=== PATIENT | female | born 1955 | race Caucasian/White ===

== ENCOUNTER 2021-04-13 16:31 | Observation (INO) | payer MEDICARE, OTHER ==
[2021-04-13 18:33] LABS: #Eosinphils 0.2 thou/uL (0.0-0.7); #Lymphocytes 1.9 thou/uL (1.20-3.40); #Monocytes 0.5 thou/uL (0.11-0.59); %Basophils 0.6 % (0.0-1.0); %Eosinophils 2.9 % (0.0-10.0); %Lymphocytes 24.5 % (21.0-51.0); %Monocytes 6.5 % (0.0-10.0); %Neutrophils 65.4 % (42.0-75.0); Hemoglobin 13.1 g/dL (12.0-16.0); Mean Corpuscular HGB CONC 31.4 g/dL (32.0-36.0); Mean Corpuscular Hemoglobin 29.2 pg (27.0-31.0); Mean Corpuscular Volume 93.1 fL (78.0-98.0); Mean Platelet Volume 9.3 fL (7.4-10.4); Platelet Count 210 thou/uL (130-400); Red Blood Cell (RBC) Count 4.48 mill/uL (4.20-5.40); White Blood Cell (WBC) Count 7.7 thou/uL (4.8-10.8)
[2021-04-13 19:08] LABS: ALT (SGPT) 23 U/L (8-55); AST (SGOT) 22 U/L (5-34); Albumin 3.8 g/dL (3.4-4.8); Alkaline Phosphatase 102 U/L (40-110); Anion Gap 14 mmol/L (10-20); BUN (Urea Nitrogen) 9 mg/dL (9.8-20.1); Bilirubin, Total 0.4 mg/dL (0.2-1.2); Calc. Creatinine Clearance 0 mL/min (70-130); Calcium 9.1 mg/dL (7.8-10.44); Carbon Dioxide 26 mmol/L (23-31); Chloride 107 mmol/L (98-107); Globulin 2.7 g/dL (2.4-3.5); Glucose 152 mg/dL (80-115); Lipase 11 U/L (8-78); Potassium 3.7 mmol/L (3.5-5.1); Protein, Total 6.5 g/dL (5.8-8.1); Sodium 143 mmol/L (136-145)
[2021-04-13] MEDS ORDERED: Pantoprazole 40 MG VIAL ONE (19:59)
[2021-04-13] MEDS ORDERED: Acetaminophen 500 MG TAB ONE (19:59)
[2021-04-13] MEDS ORDERED: Ondansetron PF 4 MG/2 ML Vial ONE (19:59)
[2021-04-13] MEDS ORDERED: Calcium Carbonate 500 MG ChewTAB PO PRN (20:11)
[2021-04-13] MEDS ORDERED: Dextrose 5% in Water 1,000 ML IV PRN (20:11)
[2021-04-13] MEDS ORDERED: Dextrose 50% Abboject 50 ML SYRINGE SLOW IVP PRN (20:11)
[2021-04-13] MEDS ORDERED: Ondansetron PF 4 MG/2 ML Vial IVP PRN (20:11)
[2021-04-13] MEDS ORDERED: HumaLOG 300 UNITS/3 ML VIAL SC PRN ×2 (20:13)
[2021-04-13] MEDS ORDERED: Lactated Ringer's 1,000 ML IV SCH (20:15)
[2021-04-14 00:30] VITALS: BMI 46.1
[2021-04-14] MEDS: Lactated Ringer's 1,000 ML IV SCH ×2 (01:34→15:38)
[2021-04-14] MEDS: Lantus 1000 UNITS/10 ML VIAL SC SCH ×2 (01:34→20:33)
[2021-04-14] MEDS: clonazePAM 1 MG TAB PO SCH ×3 (01:34→20:32)
[2021-04-14] MEDS: Gabapentin 400 MG CAP PO SCH ×4 (01:34→20:32)
[2021-04-14] MEDS: Montelukast Sodium 10 mg Tablet PO SCH ×2 (01:35→20:32)
[2021-04-14 01:59] LABS: SARS-CoV-2 NAA Rapid Test Not Detected (NotDetected)
[2021-04-14 06:23] LABS: Anion Gap 13 mmol/L (10-20); BUN (Urea Nitrogen) 8 mg/dL (9.8-20.1); Calc. Creatinine Clearance 140 mL/min (70-130); Calcium 8.6 mg/dL (7.8-10.44); Carbon Dioxide 27 mmol/L (23-31); Chloride 108 mmol/L (98-107); Glucose 119 mg/dL (80-115); Potassium 3.4 mmol/L (3.5-5.1); Sodium 145 mmol/L (136-145)
[2021-04-14] MEDS ORDERED: Potassium Chloride 20 MEQ TAB PO SCH (07:00)
[2021-04-14] MEDS: Fluticasone Propionate Nasal Spray 16 gm Bottle NASAL SCH (09:00)
[2021-04-14] MEDS: Azelastine 137 MCG/Spray 30 ML NS SCH (09:00)
[2021-04-14] MEDS ORDERED: Enoxaparin Sodium 40 MG/0.4 ML SYRINGE SC SCH (09:00)
[2021-04-14] MEDS: Zinc Sulfate 220 MG CAP PO SCH (09:59)
[2021-04-14] MEDS: Carvedilol 6.25 MG TAB PO SCH ×2 (09:59→17:30)
[2021-04-14] MEDS: Spironolactone 25 MG TAB PO SCH (10:00)
[2021-04-14] MEDS: Potassium Chloride 10 MEQ TAB PO SCH (10:00)
[2021-04-14] MEDS: Folic Acid 1 MG TAB PO SCH (10:00)
[2021-04-14] MEDS: Loratadine 10 MG TAB PO SCH (10:00)
[2021-04-14] MEDS: guaiFENesin ER 600 MG TAB PO SCH ×2 (10:01→20:32)
[2021-04-14] MEDS ORDERED: Pseudoephedrine HCl 30 MG TAB PO PRN (10:12)
[2021-04-14] MEDS ORDERED: buPROPion HCl 100 MG TAB PO SCH (10:15)
[2021-04-14] MEDS: Acetaminophen 325 MG TAB PO PRN ×2 (11:50→23:17)
[2021-04-14] MEDS ORDERED: hydrALAZINE 10 MG TAB PO SCH (13:30)
[2021-04-14] MEDS ORDERED: methylPREDNISolone Acetate 40 mg/ml Vial IM SCH (13:45)
[2021-04-14] MEDS ORDERED: Furosemide 20 MG/2 ML VIAL SLOW IVP SCH (14:00)
[2021-04-14] MEDS: Ondansetron ODT 4 MG TAB PO PRN ×2 (14:44→17:29)
[2021-04-14 15:55] LABS: Bacteria/HPF None Seen HPF (None Seen); Bilirubin Negative (Negative); Blood, Urine Negative (Negative); Clarity Clear (Clear); Glucose, Urine (Dipstick) Normal (Negative); Ketone, Urine 40 mg/dL (Negative); Leukocyte Negative Leu/uL (Negative); Nitrite Negative (Negative); Protein, Urine (Dipstick) 10 mg/dL (Neg-Trace); RBC/HPF 0-3 HPF (0-3); Specific Gravity, Urine 1.024 (1.002-1.036); Urobilinogen Normal mg/dL (Less than 2); WBC/HPF 0-3 HPF (0-3); pH, Urine 5.5 (5.0-9.0)
[2021-04-14 15:57] LABS: Calcium Oxalate Crystals Rare HPF (None Seen)
[2021-04-14] MEDS ORDERED: Promethazine HCl 25 MG in Sodium Chloride 0.9% 50 ML IVPB PRN (18:36)
[2021-04-14] MEDS ORDERED: Multivitamins, Adult 10 ML, Folic Acid 1 MG, Thiamine HCl 100 MG in Dextrose 5 %-0.45 %... IV SCH (20:00)
[2021-04-14] MEDS: buPROPion HCl 100 MG TAB PO SCH (20:32)
[2021-04-14] MEDS ORDERED: hydrALAZINE 25 MG TAB PO SCH (21:00)
[2021-04-15 05:18] LABS: Anion Gap 12 mmol/L (10-20); BUN (Urea Nitrogen) 7 mg/dL (9.8-20.1); Calc. Creatinine Clearance 136 mL/min (70-130); Calcium 9.2 mg/dL (7.8-10.44); Carbon Dioxide 29 mmol/L (23-31); Chloride 106 mmol/L (98-107); Glucose 113 mg/dL (80-115); Potassium 3.5 mmol/L (3.5-5.1); Sodium 143 mmol/L (136-145)
[2021-04-15] MEDS ORDERED: Promethazine 25 MG TAB PO PRN (07:01)
[2021-04-15] MEDS ORDERED: hydrALAZINE 25 MG TAB PO SCH (09:00)
[2021-04-15] MEDS ORDERED: Enoxaparin Sodium 60 MG/0.6 ML SYRINGE SC SCH (09:00)
[2021-04-15] MEDS ORDERED: FLU VACC QS2021-22(65YR UP)/PF 240 MCG/0.7 ML SYRINGE IM ONE (09:00)
[2021-04-15] MEDS: Gabapentin 400 MG CAP PO SCH ×2 (10:19→16:40)
[2021-04-15] MEDS: Zinc Sulfate 220 MG CAP PO SCH (10:19)
[2021-04-15] MEDS: Carvedilol 6.25 MG TAB PO SCH (10:21)
[2021-04-15] MEDS: Loratadine 10 MG TAB PO SCH (10:22)
[2021-04-15] MEDS: Spironolactone 25 MG TAB PO SCH (10:23)
[2021-04-15] MEDS: Folic Acid 1 MG TAB PO SCH (10:25)
[2021-04-15] MEDS: Potassium Chloride 10 MEQ TAB PO SCH (10:32)
[2021-04-15] MEDS: buPROPion HCl 100 MG TAB PO SCH (10:32)
[2021-04-15] MEDS: guaiFENesin ER 600 MG TAB PO SCH (10:34)
[2021-04-15] MEDS: clonazePAM 1 MG TAB PO SCH (10:36)
[2021-04-15] MEDS: Azelastine 137 MCG/Spray 30 ML NS SCH (11:41)
[2021-04-15] MEDS: Fluticasone Propionate Nasal Spray 16 gm Bottle NASAL SCH (11:41)
[2021-04-15 12:06] VITALS: BP 146/71; TEMP 98.3
== END 2021-04-15 17:00 | disposition home or self-care (01) ==
LOC: ERS 16:31 → 2SW 19:41
PROVIDERS: ADMIT Family Medicine; ATTEND Family Medicine
DX: E86.0 Dehydration (principal); R19.7 Diarrhea, unspecified; E87.6 Hypokalemia; F32.A Depression, unspecified; H65.93 Unspecified nonsuppurative otitis media, bilateral; J06.9 Acute upper respiratory infection, unspecified; J30.2 Other seasonal allergic rhinitis; I10 Essential (primary) hypertension; K21.9 Gastro-esophageal reflux disease without esophagitis; E11.42 Type 2 diabetes mellitus with diabetic polyneuropathy; F41.1 Generalized anxiety disorder; E66.01 Morbid (severe) obesity due to excess calories; Z68.42 Body mass index [BMI] 45.0-49.9, adult; Z20.822 Contact with and (suspected) exposure to COVID-19; Z88.6 Allergy status to analgesic agent; Z88.0 Allergy status to penicillin; Z88.5 Allergy status to narcotic agent; Z79.51 Long term (current) use of inhaled steroids; Z79.899 Other long term (current) drug therapy; Z98.84 Bariatric surgery status
CPT/HCPCS: 71045; 80048 ×2; 80053; 81001; 82962 ×2; 83690; 84425; 84484; 85025; 87324; 87449; 93005; 96372 ×2; 96374; 96375 ×2; 99285; G0378 ×3; U0002; 36415; 36416; C9113; J1650; J1815; J1940; J2405; J2550; J3411; J7042; J7120; Q0162; Q0169

== ENCOUNTER 2021-04-30 17:02 | Emergency (ER) | payer MEDICARE, OTHER ==
[2021-04-30] MEDS ORDERED: Metoclopramide HCl 10 MG/2 ML VIAL ONE (19:11)
[2021-04-30] MEDS ORDERED: Metoclopramide HCl 10 MG/2 ML VIAL IVP SCH (19:30)
[2021-04-30] MEDS ORDERED: Sodium Chloride 0.9% 1,000 ML IV SCH (19:30)
[2021-04-30 20:11] LABS: Phosphorus 3.5 mg/dL (2.3-4.7)
[2021-04-30 20:14] LABS: ALT (SGPT) 21 U/L (8-55); AST (SGOT) 23 U/L (5-34); Albumin 3.9 g/dL (3.4-4.8); Alkaline Phosphatase 102 U/L (40-110); Anion Gap 13 mmol/L (10-20); BUN (Urea Nitrogen) 10 mg/dL (9.8-20.1); Bilirubin, Total 0.4 mg/dL (0.2-1.2); Calc. Creatinine Clearance 0 mL/min (70-130); Calcium 8.8 mg/dL (7.8-10.44); Carbon Dioxide 25 mmol/L (23-31); Chloride 105 mmol/L (98-107); Globulin 3.1 g/dL (2.4-3.5); Glucose 108 mg/dL (80-115); Magnesium 1.9 mg/dL (1.6-2.6); Potassium 3.9 mmol/L (3.5-5.1); Sodium 139 mmol/L (136-145)
[2021-04-30 20:19] LABS: #Eosinphils 0.1 thou/uL (0.0-0.7); #Lymphocytes 1.7 thou/uL (1.20-3.40); #Monocytes 0.8 thou/uL (0.11-0.59); #Neutrophils 7.1 thou/uL (1.40-6.50); %Basophils 0.4 % (0.0-1.0); %Eosinophils 0.7 % (0.0-10.0); %Lymphocytes 17.5 % (21.0-51.0); %Neutrophils 73.3 % (42.0-75.0); Hemoglobin 13.6 g/dL (12.0-16.0); Mean Corpuscular HGB CONC 32.7 g/dL (32.0-36.0); Mean Corpuscular Hemoglobin 30.4 pg (27.0-31.0); Mean Corpuscular Volume 92.9 fL (78.0-98.0); Mean Platelet Volume 8.8 fL (7.4-10.4); Platelet Count 208 thou/uL (130-400); RBC Distribution Width 15.4 % (11.5-14.5); Red Blood Cell (RBC) Count 4.49 mill/uL (4.20-5.40); White Blood Cell (WBC) Count 9.6 thou/uL (4.8-10.8)
== END 2021-04-30 22:05 | disposition home or self-care (01) ==
LOC: ERS 17:02
DX: R11.2 Nausea with vomiting, unspecified (principal); R19.7 Diarrhea, unspecified; I10 Essential (primary) hypertension; K21.9 Gastro-esophageal reflux disease without esophagitis; M19.90 Unspecified osteoarthritis, unspecified site; Z79.899 Other long term (current) drug therapy
CPT/HCPCS: 36415; 80053; 83735; 84100; 85025; 96365; 96372; 96375; J0500; J2765; J3411

== ENCOUNTER 2022-01-01 13:50 | Outpatient (CLI) | payer OTHER | END 2022-01-01 13:51 | disposition home or self-care (01) | LOC: DTY/OP 13:50 | PROVIDERS: ATTEND Nurse Practitioner Family | DX: E66.01 Morbid (severe) obesity due to excess calories (principal) | CPT/HCPCS: 97802 ==

== ENCOUNTER 2022-02-22 15:21 | Outpatient (CLI) | payer MEDICARE, MEDICAID ==
[2022-02-22 16:50] LABS: #Eosinphils 0.1 10x3/uL (0.0-0.5); #Monocytes 0.4 10x3/uL (0.0-1.1); #Neutrophils 3.1 10x3/uL (1.5-8.4); %Basophils 0.5 % (0.0-2.0); %Eosinophils 2.4 % (0.0-6.0); %Lymphocytes 35.6 % (18.0-47.0); %Monocytes 7.5 % (0.0-10.0); %Neutrophils 53.7 % (40.0-75.0); Hemoglobin 12.3 g/dL (12.0-15.5); Mean Corpuscular HGB CONC 32.4 g/dL (32.0-36.0); Mean Corpuscular Hemoglobin 31.2 pg (27.0-33.0); Mean Corpuscular Volume 96.4 fl (81.6-98.3); Mean Platelet Volume 11.7 fl (7.4-10.4); Platelet Count 183 10x3/uL (150-450); RBC Distribution Width 14.2 % (11.5-14.5); Red Blood Cell (RBC) Count 3.94 10x6/uL (3.90-5.03); White Blood Cell (WBC) Count 5.8 10x3/uL (3.5-10.5)
[2022-02-22 17:09] LABS: Prothrombin Time 11.2 sec (9.5-12.1)
[2022-02-22 17:29] LABS: Anion Gap 13 mmol/L (10-20); BUN (Urea Nitrogen) 11 mg/dL (9.8-20.1); Calc. Creatinine Clearance 0 mL/min (70-130); Calcium 8.5 mg/dL (7.8-10.44); Carbon Dioxide 26 mmol/L (23-31); Chloride 107 mmol/L (98-107); Estimated GFR 95; Glucose 105 mg/dL (80-115); Potassium 3.7 mmol/L (3.5-5.1); Sodium 142 mmol/L (136-145)
== END 2022-02-22 15:22 | disposition home or self-care (01) ==
LOC: LABBT 15:21
PROVIDERS: ATTEND Orthopaedic Surgery
DX: Z01.812 Encounter for preprocedural laboratory examination (principal); M17.12 Unilateral primary osteoarthritis, left knee; Z20.822 Contact with and (suspected) exposure to COVID-19
CPT/HCPCS: 80048; 85025; 85610; 87081; 87811

== ENCOUNTER 2022-02-25 07:05 | Inpatient (IN) | payer OTHER, MEDICAID ==
[2022-02-23 11:32] VITALS: BMI 34.9
[2022-02-25] MEDS ORDERED: Bupivacaine PF 0.5% 30 ML VIAL ONE (07:20)
[2022-02-25] MEDS ORDERED: Sodium Chloride 0.9% 0 ML ONE (07:29)
[2022-02-25] MEDS ORDERED: Vancomycin (BATCH) 1.5 GRAM/300 ML BAG ONE (07:29)
[2022-02-25] MEDS ORDERED: Tranexamic Acid 1,000 MG/10 ML VIAL ONE (07:29)
[2022-02-25] MEDS ORDERED: Sodium Chloride 0.9% 100 ML ONE (07:32)
[2022-02-25] MEDS ORDERED: CEFAZOLIN 2 GM VIAL ONE (07:32)
[2022-02-25] MEDS ORDERED: Levofloxacin 500 mg/D5W 100 ml Premix Bag ONE (07:46)
[2022-02-25] MEDS ORDERED: Promethazine HCl 25 MG/ML VIAL IVPB PRN (07:46)
[2022-02-25] MEDS ORDERED: Promethazine HCl 25 MG/ML VIAL IM PRN ×3 (07:46→11:18)
[2022-02-25] MEDS ORDERED: Ondansetron HCl/PF 4 MG/2 ML Vial IVP PRN (07:46)
[2022-02-25] MEDS ORDERED: Ondansetron PF 4 MG/2 ML Vial ONE ×2 (07:56→09:17)
[2022-02-25] MEDS ORDERED: Midazolam HCl 2 mg/2 ml Vial ONE (07:59)
[2022-02-25] MEDS ORDERED: Fentanyl 100 MCG/2 ML VIAL ONE ×4 (07:59→11:43)
[2022-02-25] MEDS ORDERED: Fentanyl 100 MCG/2 ML VIAL IV PRN (08:12)
[2022-02-25] MEDS ORDERED: traMADol HCl 50 MG TAB PO PRN ×4 (08:15→11:18)
[2022-02-25] MEDS ORDERED: Zolpidem Tartrate 5 MG TAB PO PRN ×2 (08:15→11:18)
[2022-02-25] MEDS ORDERED: Ropivacaine 0.2% 550 ML 550 ML NERVE BLCK SCH (08:15)
[2022-02-25] MEDS ORDERED: Ondansetron PF 4 MG/2 ML Vial IVP PRN ×2 (08:15→11:18)
[2022-02-25] MEDS ORDERED: fentaNYL Citrate/PF 100 MCG/2 ML SYRINGE ONE (08:49)
[2022-02-25] MEDS ORDERED: Scopolamine 1.5 mg/72 hour Patch ONE (09:07)
[2022-02-25] MEDS ORDERED: Dexamethasone 20 MG/5 ML VIAL ONE (09:17)
[2022-02-25] MEDS ORDERED: Lidocaine 1% MPF 2 ML VIAL ONE (09:17)
[2022-02-25] MEDS ORDERED: Glycopyrrolate 0.2 MG/ML 5 ML SYRINGE ONE (09:17)
[2022-02-25] MEDS ORDERED: Labetalol HCl 100 MG/20 ML VIAL ONE ×2 (09:17→11:36)
[2022-02-25] MEDS ORDERED: Bupivacaine HCl 0.5%/Epinephrine 1:200,000/PF 30 ml Vial ONE (09:17)
[2022-02-25] MEDS ORDERED: ePHEDrine 50 MG/ML VIAL ONE (09:17)
[2022-02-25] MEDS ORDERED: PROPOFOL 200 MG/20 ML VIAL ONE (09:17)
[2022-02-25] MEDS ORDERED: Promethazine HCl 25 MG/ML VIAL ONE (11:00)
[2022-02-25] MEDS ORDERED: diphenhydrAMINE 25 MG CAP PO PRN (11:18)
[2022-02-25] MEDS ORDERED: HYDROcodone/Acetaminophen 10/325 mg Tablet PO PRN ×2 (11:18)
[2022-02-25] MEDS ORDERED: Acetaminophen 325 MG TAB PO PRN (11:18)
[2022-02-25] MEDS ORDERED: Morphine 2 MG/ML VIAL SLOW IVP PRN (11:18)
[2022-02-25] MEDS ORDERED: guaiFENesin ER 600 MG TAB PO PRN (11:24)
[2022-02-25] MEDS ORDERED: SECUKINUMAB 150 MG/ML SC SCH (11:30)
[2022-02-25] MEDS ORDERED: hydrALAZINE 20 MG/ML VIAL ONE (11:32)
[2022-02-25] MEDS ORDERED: Ketorolac Tromethamine 30 MG/ML VIAL ONE (11:50)
[2022-02-25] MEDS ORDERED: Mometasone 100 MCG/Formoterol 5 MCG 120 PUFF INHALER INH PRN (12:48)
[2022-02-25] MEDS ORDERED: Ketorolac Tromethamine 30 MG/ML VIAL IM SCH (14:00)
[2022-02-25] MEDS ORDERED: Vancomycin 1 GM in Premix Bag 1 BAG IVPB SCH ×2 (14:00→20:30)
[2022-02-25] MEDS: Sodium Chloride 0.9% 1,000 ML IV SCH (15:01)
[2022-02-25] MEDS: Gabapentin 400 MG CAP PO SCH ×2 (15:01→20:26)
[2022-02-25] MEDS: HYDROcodone/Acetaminophen 10/325 mg Tablet PO PRN ×2 (16:34→23:18)
[2022-02-25] MEDS: Ketorolac Tromethamine 30 MG/ML VIAL IVP SCH ×2 (18:00→20:28)
[2022-02-25] MEDS: buPROPion HCl 100 MG TAB PO SCH (20:26)
[2022-02-25] MEDS: Senokot S 8.6-50 MG TAB PO SCH (20:27)
[2022-02-25] MEDS: Ferrous Gluconate 324 MG TAB PO SCH (20:27)
[2022-02-25] MEDS: Montelukast Sodium 10 mg Tablet PO SCH (20:28)
[2022-02-25] MEDS: clonazePAM 1 MG TAB PO SCH (20:28)
[2022-02-25] MEDS: Fluticasone Propionate Nasal Spray 16 gm Bottle NASAL SCH (21:39)
[2022-02-25] MEDS: Azelastine 137 MCG/Spray 30 ML NS SCH (21:39)
[2022-02-25] MEDS: Escitalopram Oxalate 20 mg Tablet PO SCH (21:39)
[2022-02-26] MEDS: Sodium Chloride 0.9% 1,000 ML IV SCH ×3 (03:03→16:30)
[2022-02-26 05:41] LABS: Hemoglobin 9.4 g/dL (12.0-16.0); Mean Corpuscular HGB CONC 32.2 g/dL (32.0-36.0); Mean Corpuscular Hemoglobin 32.3 pg (27.0-31.0); Mean Platelet Volume 10.1 fL (7.4-10.4); Platelet Count 126 thou/uL (130-400); RBC Distribution Width 13.2 % (11.5-14.5); Red Blood Cell (RBC) Count 2.92 mill/uL (4.20-5.40); White Blood Cell (WBC) Count 6.4 thou/uL (4.8-10.8)
[2022-02-26] MEDS: Ketorolac Tromethamine 30 MG/ML VIAL IVP SCH ×3 (06:44→17:04)
[2022-02-26] MEDS: HYDROcodone/Acetaminophen 10/325 mg Tablet PO PRN ×3 (06:44→20:37)
[2022-02-26] MEDS ORDERED: Non-Formulary Item 1 EACH (Multivitamin [Multiple Vitamins] 1 EACH Tablet) PO SCH (09:00)
[2022-02-26] MEDS: Fluticasone Propionate Nasal Spray 16 gm Bottle NASAL SCH ×2 (09:04→20:36)
[2022-02-26] MEDS: Azelastine 137 MCG/Spray 30 ML NS SCH ×2 (09:04→20:36)
[2022-02-26] MEDS: buPROPion HCl 100 MG TAB PO SCH ×2 (09:06→20:34)
[2022-02-26] MEDS: Multivitamin W/ Minerals 1 TAB PO SCH (09:07)
[2022-02-26] MEDS: Spironolactone 25 MG TAB PO SCH (09:07)
[2022-02-26] MEDS: Loratadine 10 MG TAB PO SCH (09:07)
[2022-02-26] MEDS: Zinc Sulfate 220 MG CAP PO SCH (09:08)
[2022-02-26] MEDS: Senokot S 8.6-50 MG TAB PO SCH ×2 (09:08→20:34)
[2022-02-26] MEDS: Folic Acid 1 MG TAB PO SCH (09:09)
[2022-02-26] MEDS: Lisinopril 20 MG TAB PO SCH (09:09)
[2022-02-26] MEDS: clonazePAM 1 MG TAB PO SCH ×2 (09:09→20:34)
[2022-02-26] MEDS: Gabapentin 400 MG CAP PO SCH ×3 (09:10→20:33)
[2022-02-26] MEDS: Thiamine 100 MG TAB PO SCH (09:11)
[2022-02-26] MEDS: Famotidine 20 MG TAB PO SCH (09:11)
[2022-02-26] MEDS: Ferrous Gluconate 324 MG TAB PO SCH ×2 (09:11→20:35)
[2022-02-26] MEDS: Cyclobenzaprine 10 MG TAB PO PRN (09:32)
[2022-02-26] MEDS: Escitalopram Oxalate 20 mg Tablet PO SCH (20:34)
[2022-02-26] MEDS: Montelukast Sodium 10 mg Tablet PO SCH (20:34)
[2022-02-27] MEDS: Ketorolac Tromethamine 30 MG/ML VIAL IVP SCH ×3 (01:32→16:26)
[2022-02-27] MEDS: Sodium Chloride 0.9% 1,000 ML IV SCH ×3 (03:59→21:56)
[2022-02-27] MEDS: HYDROcodone/Acetaminophen 10/325 mg Tablet PO PRN ×4 (06:24→23:05)
[2022-02-27 06:32] LABS: Hemoglobin 9.9 g/dL (12.0-16.0); Mean Corpuscular HGB CONC 31.4 g/dL (32.0-36.0); Mean Corpuscular Hemoglobin 31.5 pg (27.0-31.0); Mean Platelet Volume 10.2 fL (7.4-10.4); Platelet Count 129 thou/uL (130-400); RBC Distribution Width 13.1 % (11.5-14.5); Red Blood Cell (RBC) Count 3.15 mill/uL (4.20-5.40); White Blood Cell (WBC) Count 6.4 thou/uL (4.8-10.8)
[2022-02-27] MEDS: Spironolactone 25 MG TAB PO SCH (08:52)
[2022-02-27] MEDS: Famotidine 20 MG TAB PO SCH (08:52)
[2022-02-27] MEDS: Ferrous Gluconate 324 MG TAB PO SCH ×2 (08:52→20:40)
[2022-02-27] MEDS: Folic Acid 1 MG TAB PO SCH (08:52)
[2022-02-27] MEDS: Thiamine 100 MG TAB PO SCH (08:52)
[2022-02-27] MEDS: Multivitamin W/ Minerals 1 TAB PO SCH (08:52)
[2022-02-27] MEDS: Senokot S 8.6-50 MG TAB PO SCH ×2 (08:52→20:37)
[2022-02-27] MEDS: clonazePAM 1 MG TAB PO SCH ×2 (08:52→20:38)
[2022-02-27] MEDS: buPROPion HCl 100 MG TAB PO SCH ×2 (08:52→20:40)
[2022-02-27] MEDS: Gabapentin 400 MG CAP PO SCH ×4 (08:53→20:39)
[2022-02-27] MEDS: Loratadine 10 MG TAB PO SCH (08:53)
[2022-02-27] MEDS: Lisinopril 20 MG TAB PO SCH (08:53)
[2022-02-27] MEDS: Apixaban 2.5 MG TAB PO SCH ×2 (08:53→20:38)
[2022-02-27] MEDS: Zinc Sulfate 220 MG CAP PO SCH (08:53)
[2022-02-27] MEDS: Fluticasone Propionate Nasal Spray 16 gm Bottle NASAL SCH ×2 (08:56→20:47)
[2022-02-27] MEDS: Azelastine 137 MCG/Spray 30 ML NS SCH ×2 (08:56→20:47)
[2022-02-27] MEDS: Cyclobenzaprine 10 MG TAB PO PRN (10:10)
[2022-02-27] MEDS: Montelukast Sodium 10 mg Tablet PO SCH (20:40)
[2022-02-27] MEDS: Escitalopram Oxalate 20 mg Tablet PO SCH (20:46)
[2022-02-28] MEDS: HYDROcodone/Acetaminophen 10/325 mg Tablet PO PRN ×4 (03:44→20:42)
[2022-02-28 05:38] LABS: Hemoglobin 9.7 g/dL (12.0-16.0); Mean Corpuscular Hemoglobin 32.4 pg (27.0-31.0); Mean Platelet Volume 9.8 fL (7.4-10.4); Platelet Count 140 thou/uL (130-400); RBC Distribution Width 13.1 % (11.5-14.5); White Blood Cell (WBC) Count 5.3 thou/uL (4.8-10.8)
[2022-02-28] MEDS: Promethazine 25 MG TAB PO PRN (09:38)
[2022-02-28] MEDS: Gabapentin 400 MG CAP PO SCH ×3 (09:39→20:42)
[2022-02-28] MEDS: buPROPion HCl 100 MG TAB PO SCH ×2 (09:39→20:42)
[2022-02-28] MEDS: Spironolactone 25 MG TAB PO SCH (09:39)
[2022-02-28] MEDS: Ferrous Gluconate 324 MG TAB PO SCH ×2 (09:40→20:42)
[2022-02-28] MEDS: Zinc Sulfate 220 MG CAP PO SCH (09:40)
[2022-02-28] MEDS: Senokot S 8.6-50 MG TAB PO SCH ×2 (09:40→20:42)
[2022-02-28] MEDS: Folic Acid 1 MG TAB PO SCH (09:40)
[2022-02-28] MEDS: Multivitamin W/ Minerals 1 TAB PO SCH (09:40)
[2022-02-28] MEDS: Lisinopril 20 MG TAB PO SCH (09:41)
[2022-02-28] MEDS: Thiamine 100 MG TAB PO SCH (09:41)
[2022-02-28] MEDS: Apixaban 2.5 MG TAB PO SCH ×2 (09:42→20:42)
[2022-02-28] MEDS: clonazePAM 1 MG TAB PO SCH ×2 (09:42→20:42)
[2022-02-28] MEDS: Loratadine 10 MG TAB PO SCH (09:43)
[2022-02-28] MEDS: Azelastine 137 MCG/Spray 30 ML NS SCH ×2 (09:50→21:01)
[2022-02-28] MEDS: Fluticasone Propionate Nasal Spray 16 gm Bottle NASAL SCH ×2 (09:50→21:02)
[2022-02-28] MEDS: Famotidine 20 MG TAB PO SCH (09:52)
[2022-02-28] MEDS: Sodium Chloride 0.9% 1,000 ML IV SCH ×2 (09:54→19:24)
[2022-02-28] MEDS ORDERED: fentaNYL 50 mcg/hour Patch TD SCH (12:00)
[2022-02-28] MEDS: Polyethylene Glycol 3350 17 GM Packet PO PRN (13:38)
[2022-02-28] MEDS: Escitalopram Oxalate 20 mg Tablet PO SCH (20:42)
[2022-02-28] MEDS: Montelukast Sodium 10 mg Tablet PO SCH (20:42)
[2022-02-28] MEDS: Cyclobenzaprine 10 MG TAB PO PRN (20:43)
[2022-03-01] MEDS: HYDROcodone/Acetaminophen 10/325 mg Tablet PO PRN ×4 (00:45→21:24)
[2022-03-01] MEDS: Sodium Chloride 0.9% 1,000 ML IV SCH ×2 (04:26→14:46)
[2022-03-01 06:01] LABS: Hemoglobin 9.3 g/dL (12.0-16.0); Mean Platelet Volume 9.9 fL (7.4-10.4); Platelet Count 151 thou/uL (130-400); Red Blood Cell (RBC) Count 2.91 mill/uL (4.20-5.40); White Blood Cell (WBC) Count 5.7 thou/uL (4.8-10.8)
[2022-03-01] MEDS: Loratadine 10 MG TAB PO SCH (08:47)
[2022-03-01] MEDS: Zinc Sulfate 220 MG CAP PO SCH (08:47)
[2022-03-01] MEDS: Folic Acid 1 MG TAB PO SCH (08:47)
[2022-03-01] MEDS: Gabapentin 400 MG CAP PO SCH ×4 (08:47→21:25)
[2022-03-01] MEDS: Multivitamin W/ Minerals 1 TAB PO SCH (08:47)
[2022-03-01] MEDS: buPROPion HCl 100 MG TAB PO SCH ×2 (08:47→21:23)
[2022-03-01] MEDS: clonazePAM 1 MG TAB PO SCH ×2 (08:48→21:24)
[2022-03-01] MEDS: Ferrous Gluconate 324 MG TAB PO SCH ×2 (08:48→21:24)
[2022-03-01] MEDS: Apixaban 2.5 MG TAB PO SCH ×2 (08:48→21:24)
[2022-03-01] MEDS: Spironolactone 25 MG TAB PO SCH (08:48)
[2022-03-01] MEDS: Lisinopril 20 MG TAB PO SCH (08:48)
[2022-03-01] MEDS: Senokot S 8.6-50 MG TAB PO SCH ×2 (08:49→21:24)
[2022-03-01] MEDS: Thiamine 100 MG TAB PO SCH (08:49)
[2022-03-01] MEDS: Famotidine 20 MG TAB PO SCH (08:49)
[2022-03-01] MEDS: Azelastine 137 MCG/Spray 30 ML NS SCH ×2 (08:49→21:26)
[2022-03-01] MEDS: Fluticasone Propionate Nasal Spray 16 gm Bottle NASAL SCH ×2 (08:49→21:26)
[2022-03-01] MEDS: Polyethylene Glycol 3350 17 GM Packet PO PRN (08:52)
[2022-03-01] MEDS: Cyclobenzaprine 10 MG TAB PO PRN ×2 (09:00→21:23)
[2022-03-01] MEDS: Diclofenac 1% 100 GM GEL TP SCH ×4 (12:27→21:35)
[2022-03-01] MEDS ORDERED: Ondansetron ODT 4 MG TAB PO PRN (16:49)
[2022-03-01] MEDS: Escitalopram Oxalate 20 mg Tablet PO SCH (21:24)
[2022-03-01] MEDS: Montelukast Sodium 10 mg Tablet PO SCH (21:25)
[2022-03-02] MEDS: Sodium Chloride 0.9% 1,000 ML IV SCH ×3 (00:25→23:03)
[2022-03-02] MEDS: HYDROcodone/Acetaminophen 10/325 mg Tablet PO PRN ×4 (04:31→17:46)
[2022-03-02] MEDS: Diclofenac 1% 100 GM GEL TP SCH ×4 (09:53→21:40)
[2022-03-02] MEDS: Azelastine 137 MCG/Spray 30 ML NS SCH ×2 (09:57→21:39)
[2022-03-02] MEDS: Fluticasone Propionate Nasal Spray 16 gm Bottle NASAL SCH ×2 (09:58→21:39)
[2022-03-02] MEDS: Promethazine 25 MG TAB PO PRN (10:04)
[2022-03-02] MEDS: clonazePAM 1 MG TAB PO SCH ×2 (10:07→21:41)
[2022-03-02] MEDS: Gabapentin 400 MG CAP PO SCH ×3 (10:07→21:41)
[2022-03-02] MEDS: Ferrous Gluconate 324 MG TAB PO SCH ×2 (10:08→21:41)
[2022-03-02] MEDS: Senokot S 8.6-50 MG TAB PO SCH ×2 (10:08→21:42)
[2022-03-02] MEDS: buPROPion HCl 100 MG TAB PO SCH ×2 (10:08→21:40)
[2022-03-02] MEDS: Loratadine 10 MG TAB PO SCH (10:09)
[2022-03-02] MEDS: Zinc Sulfate 220 MG CAP PO SCH (10:09)
[2022-03-02] MEDS: Multivitamin W/ Minerals 1 TAB PO SCH (10:09)
[2022-03-02] MEDS: Apixaban 2.5 MG TAB PO SCH ×2 (10:09→21:49)
[2022-03-02] MEDS: Famotidine 20 MG TAB PO SCH (10:10)
[2022-03-02] MEDS: Thiamine 100 MG TAB PO SCH (10:10)
[2022-03-02] MEDS: Lisinopril 20 MG TAB PO SCH (10:10)
[2022-03-02] MEDS: Spironolactone 25 MG TAB PO SCH (10:10)
[2022-03-02] MEDS: Folic Acid 1 MG TAB PO SCH (10:10)
[2022-03-02] MEDS: Cyclobenzaprine 10 MG TAB PO PRN ×2 (10:18→21:42)
[2022-03-02] MEDS: Escitalopram Oxalate 20 mg Tablet PO SCH (21:41)
[2022-03-02] MEDS: Montelukast Sodium 10 mg Tablet PO SCH (21:42)
[2022-03-03] MEDS: HYDROcodone/Acetaminophen 10/325 mg Tablet PO PRN ×4 (00:39→21:34)
[2022-03-03] MEDS: Sodium Chloride 0.9% 1,000 ML IV SCH ×2 (06:48→17:51)
[2022-03-03] MEDS: Zinc Sulfate 220 MG CAP PO SCH (10:03)
[2022-03-03] MEDS: Senokot S 8.6-50 MG TAB PO SCH ×2 (10:03→20:58)
[2022-03-03] MEDS: Famotidine 20 MG TAB PO SCH (10:03)
[2022-03-03] MEDS: Multivitamin W/ Minerals 1 TAB PO SCH (10:03)
[2022-03-03] MEDS: Loratadine 10 MG TAB PO SCH (10:04)
[2022-03-03] MEDS: Spironolactone 25 MG TAB PO SCH (10:04)
[2022-03-03] MEDS: Gabapentin 400 MG CAP PO SCH ×3 (10:05→20:58)
[2022-03-03] MEDS: Folic Acid 1 MG TAB PO SCH (10:05)
[2022-03-03] MEDS: Apixaban 2.5 MG TAB PO SCH ×2 (10:05→20:58)
[2022-03-03] MEDS: Ferrous Gluconate 324 MG TAB PO SCH ×2 (10:05→20:58)
[2022-03-03] MEDS: Thiamine 100 MG TAB PO SCH (10:06)
[2022-03-03] MEDS: Diclofenac 1% 100 GM GEL TP SCH ×4 (10:06→20:59)
[2022-03-03] MEDS: buPROPion HCl 100 MG TAB PO SCH ×2 (10:06→20:57)
[2022-03-03] MEDS: Lisinopril 20 MG TAB PO SCH (10:06)
[2022-03-03] MEDS: clonazePAM 1 MG TAB PO SCH ×2 (10:06→20:58)
[2022-03-03] MEDS: Azelastine 137 MCG/Spray 30 ML NS SCH ×2 (10:07→20:59)
[2022-03-03] MEDS: Fluticasone Propionate Nasal Spray 16 gm Bottle NASAL SCH ×2 (10:08→20:59)
[2022-03-03] MEDS: Montelukast Sodium 10 mg Tablet PO SCH (20:57)
[2022-03-03] MEDS: Escitalopram Oxalate 20 mg Tablet PO SCH (20:58)
[2022-03-04] MEDS: Cyclobenzaprine 10 MG TAB PO PRN (00:20)
[2022-03-04] MEDS: HYDROcodone/Acetaminophen 10/325 mg Tablet PO PRN ×3 (05:05→20:53)
[2022-03-04] MEDS: Sodium Chloride 0.9% 1,000 ML IV SCH ×2 (07:30→12:54)
[2022-03-04] MEDS: Thiamine 100 MG TAB PO SCH (08:24)
[2022-03-04] MEDS: Folic Acid 1 MG TAB PO SCH (08:25)
[2022-03-04] MEDS: clonazePAM 1 MG TAB PO SCH ×2 (08:25→20:44)
[2022-03-04] MEDS: Senokot S 8.6-50 MG TAB PO SCH ×2 (08:25→20:51)
[2022-03-04] MEDS: buPROPion HCl 100 MG TAB PO SCH ×2 (08:25→20:44)
[2022-03-04] MEDS: Loratadine 10 MG TAB PO SCH (08:25)
[2022-03-04] MEDS: Zinc Sulfate 220 MG CAP PO SCH (08:26)
[2022-03-04] MEDS: Lisinopril 20 MG TAB PO SCH (08:26)
[2022-03-04] MEDS: Apixaban 2.5 MG TAB PO SCH ×2 (08:27→20:44)
[2022-03-04] MEDS: Multivitamin W/ Minerals 1 TAB PO SCH (08:27)
[2022-03-04] MEDS: Famotidine 20 MG TAB PO SCH (08:27)
[2022-03-04] MEDS: Ferrous Gluconate 324 MG TAB PO SCH ×2 (08:27→20:50)
[2022-03-04] MEDS: Gabapentin 400 MG CAP PO SCH ×3 (08:27→20:51)
[2022-03-04] MEDS: Spironolactone 25 MG TAB PO SCH (08:28)
[2022-03-04] MEDS: Fluticasone Propionate Nasal Spray 16 gm Bottle NASAL SCH ×2 (08:30→20:51)
[2022-03-04] MEDS: Azelastine 137 MCG/Spray 30 ML NS SCH ×2 (08:30→20:44)
[2022-03-04] MEDS: Diclofenac 1% 100 GM GEL TP SCH ×5 (08:31→20:56)
[2022-03-04] MEDS: Escitalopram Oxalate 20 mg Tablet PO SCH (20:49)
[2022-03-04] MEDS: Montelukast Sodium 10 mg Tablet PO SCH (20:51)
[2022-03-05] MEDS: Cyclobenzaprine 10 MG TAB PO PRN ×2 (02:37→10:10)
[2022-03-05] MEDS: Sodium Chloride 0.9% 1,000 ML IV SCH ×3 (02:38→20:18)
[2022-03-05] MEDS: Gabapentin 400 MG CAP PO SCH ×3 (08:17→20:22)
[2022-03-05] MEDS: Folic Acid 1 MG TAB PO SCH (08:19)
[2022-03-05] MEDS: HYDROcodone/Acetaminophen 10/325 mg Tablet PO PRN ×2 (08:20→14:12)
[2022-03-05] MEDS: Multivitamin W/ Minerals 1 TAB PO SCH (08:22)
[2022-03-05] MEDS: Thiamine 100 MG TAB PO SCH (08:22)
[2022-03-05] MEDS: Famotidine 20 MG TAB PO SCH (08:22)
[2022-03-05] MEDS: Spironolactone 25 MG TAB PO SCH (08:23)
[2022-03-05] MEDS: Senokot S 8.6-50 MG TAB PO SCH ×2 (08:23→20:23)
[2022-03-05] MEDS: Loratadine 10 MG TAB PO SCH (08:24)
[2022-03-05] MEDS: Apixaban 2.5 MG TAB PO SCH ×2 (08:24→20:21)
[2022-03-05] MEDS: Zinc Sulfate 220 MG CAP PO SCH (08:24)
[2022-03-05] MEDS: buPROPion HCl 100 MG TAB PO SCH ×2 (08:24→20:21)
[2022-03-05] MEDS: Diclofenac 1% 100 GM GEL TP SCH ×4 (08:25→20:24)
[2022-03-05] MEDS: Ferrous Gluconate 324 MG TAB PO SCH ×2 (08:25→20:23)
[2022-03-05] MEDS: clonazePAM 1 MG TAB PO SCH ×2 (08:25→20:23)
[2022-03-05] MEDS: Lisinopril 20 MG TAB PO SCH (08:25)
[2022-03-05] MEDS: Azelastine 137 MCG/Spray 30 ML NS SCH ×2 (08:26→20:23)
[2022-03-05] MEDS: Fluticasone Propionate Nasal Spray 16 gm Bottle NASAL SCH ×2 (08:26→20:23)
[2022-03-05] MEDS: Montelukast Sodium 10 mg Tablet PO SCH (20:21)
[2022-03-05] MEDS: Escitalopram Oxalate 20 mg Tablet PO SCH (20:21)
[2022-03-06] MEDS: Cyclobenzaprine 10 MG TAB PO PRN ×2 (01:19→17:53)
[2022-03-06] MEDS: HYDROcodone/Acetaminophen 10/325 mg Tablet PO PRN ×3 (01:20→21:09)
[2022-03-06] MEDS: Sodium Chloride 0.9% 1,000 ML IV SCH ×2 (06:56→15:21)
[2022-03-06] MEDS: Gabapentin 400 MG CAP PO SCH ×3 (09:04→21:04)
[2022-03-06] MEDS: buPROPion HCl 100 MG TAB PO SCH ×2 (09:06→21:00)
[2022-03-06] MEDS: Apixaban 2.5 MG TAB PO SCH ×2 (09:06→21:00)
[2022-03-06] MEDS: clonazePAM 1 MG TAB PO SCH ×2 (09:06→21:00)
[2022-03-06] MEDS: Lisinopril 20 MG TAB PO SCH (09:06)
[2022-03-06] MEDS: Loratadine 10 MG TAB PO SCH (09:07)
[2022-03-06] MEDS: Famotidine 20 MG TAB PO SCH (09:08)
[2022-03-06] MEDS: Zinc Sulfate 220 MG CAP PO SCH (09:08)
[2022-03-06] MEDS: Ferrous Gluconate 324 MG TAB PO SCH ×2 (09:08→21:01)
[2022-03-06] MEDS: Folic Acid 1 MG TAB PO SCH (09:08)
[2022-03-06] MEDS: Senokot S 8.6-50 MG TAB PO SCH ×2 (09:08→21:05)
[2022-03-06] MEDS: Thiamine 100 MG TAB PO SCH (09:09)
[2022-03-06] MEDS: Spironolactone 25 MG TAB PO SCH (09:09)
[2022-03-06] MEDS: Multivitamin W/ Minerals 1 TAB PO SCH (09:09)
[2022-03-06] MEDS: Diclofenac 1% 100 GM GEL TP SCH ×4 (09:10→20:55)
[2022-03-06] MEDS: Azelastine 137 MCG/Spray 30 ML NS SCH ×2 (09:11→21:11)
[2022-03-06] MEDS: Fluticasone Propionate Nasal Spray 16 gm Bottle NASAL SCH ×2 (09:11→21:11)
[2022-03-06] MEDS: Polyethylene Glycol 3350 17 GM Packet PO PRN (16:41)
[2022-03-06] MEDS: Promethazine 25 MG TAB PO PRN (17:53)
[2022-03-06] MEDS: Montelukast Sodium 10 mg Tablet PO SCH (21:01)
[2022-03-06] MEDS: Escitalopram Oxalate 20 mg Tablet PO SCH (21:03)
[2022-03-07] MEDS: Sodium Chloride 0.9% 1,000 ML IV SCH ×3 (02:46→22:55)
[2022-03-07] MEDS: Ferrous Gluconate 324 MG TAB PO SCH ×2 (09:26→20:26)
[2022-03-07] MEDS: Multivitamin W/ Minerals 1 TAB PO SCH (09:26)
[2022-03-07] MEDS: Thiamine 100 MG TAB PO SCH (09:26)
[2022-03-07] MEDS: Zinc Sulfate 220 MG CAP PO SCH (09:26)
[2022-03-07] MEDS: Senokot S 8.6-50 MG TAB PO SCH ×2 (09:26→20:27)
[2022-03-07] MEDS: Folic Acid 1 MG TAB PO SCH (09:26)
[2022-03-07] MEDS: buPROPion HCl 100 MG TAB PO SCH ×2 (09:26→20:26)
[2022-03-07] MEDS: Spironolactone 25 MG TAB PO SCH (09:27)
[2022-03-07] MEDS: Famotidine 20 MG TAB PO SCH (09:28)
[2022-03-07] MEDS: Apixaban 2.5 MG TAB PO SCH ×2 (09:29→20:25)
[2022-03-07] MEDS: Lisinopril 20 MG TAB PO SCH (09:29)
[2022-03-07] MEDS: Loratadine 10 MG TAB PO SCH (09:29)
[2022-03-07] MEDS: clonazePAM 1 MG TAB PO SCH ×2 (09:29→20:27)
[2022-03-07] MEDS: Gabapentin 400 MG CAP PO SCH ×3 (09:30→20:25)
[2022-03-07] MEDS: Fluticasone Propionate Nasal Spray 16 gm Bottle NASAL SCH ×2 (09:30→20:27)
[2022-03-07] MEDS: Azelastine 137 MCG/Spray 30 ML NS SCH ×2 (09:31→20:27)
[2022-03-07] MEDS: HYDROcodone/Acetaminophen 10/325 mg Tablet PO PRN ×3 (09:37→21:42)
[2022-03-07] MEDS: Diclofenac 1% 100 GM GEL TP SCH ×4 (11:47→20:23)
[2022-03-07] MEDS: Montelukast Sodium 10 mg Tablet PO SCH (20:26)
[2022-03-07] MEDS: Escitalopram Oxalate 20 mg Tablet PO SCH (20:26)
[2022-03-08] MEDS: Sodium Chloride 0.9% 1,000 ML IV SCH (03:19)
[2022-03-08] MEDS: HYDROcodone/Acetaminophen 10/325 mg Tablet PO PRN (05:43)
[2022-03-08 08:08] VITALS: BP 132/81; TEMP 98.6
[2022-03-08] MEDS: clonazePAM 1 MG TAB PO SCH (09:47)
[2022-03-08] MEDS: Ferrous Gluconate 324 MG TAB PO SCH (09:47)
[2022-03-08] MEDS: Loratadine 10 MG TAB PO SCH (09:47)
[2022-03-08] MEDS: Thiamine 100 MG TAB PO SCH (09:47)
[2022-03-08] MEDS: Zinc Sulfate 220 MG CAP PO SCH (09:47)
[2022-03-08] MEDS: Multivitamin W/ Minerals 1 TAB PO SCH (09:47)
[2022-03-08] MEDS: Folic Acid 1 MG TAB PO SCH (09:47)
[2022-03-08] MEDS: buPROPion HCl 100 MG TAB PO SCH (09:47)
[2022-03-08] MEDS: Famotidine 20 MG TAB PO SCH (09:47)
[2022-03-08] MEDS: Senokot S 8.6-50 MG TAB PO SCH (09:48)
[2022-03-08] MEDS: Spironolactone 25 MG TAB PO SCH (09:48)
[2022-03-08] MEDS: Lisinopril 20 MG TAB PO SCH (09:48)
[2022-03-08] MEDS: Apixaban 2.5 MG TAB PO SCH (09:48)
[2022-03-08] MEDS: Gabapentin 400 MG CAP PO SCH (09:49)
[2022-03-08] MEDS: Fluticasone Propionate Nasal Spray 16 gm Bottle NASAL SCH (09:50)
[2022-03-08] MEDS: Azelastine 137 MCG/Spray 30 ML NS SCH (09:50)
[2022-03-08] MEDS: Diclofenac 1% 100 GM GEL TP SCH (10:19)
== END 2022-03-08 10:45 | DRG 470 ==
LOC: SDC 07:05 → SURG A 11:18
PROVIDERS: ADMIT Orthopaedic Surgery; ATTEND Orthopaedic Surgery
PROC: 0SRD0J9 Replacement of Left Knee Joint with Synthetic Substitute, Cemented, Open Approach (ICD-10-PCS; principal; 2022-02-25)
DX: M17.12 Unilateral primary osteoarthritis, left knee (principal); E11.9 Type 2 diabetes mellitus without complications; I10 Essential (primary) hypertension; E66.9 Obesity, unspecified; E78.5 Hyperlipidemia, unspecified; J45.909 Unspecified asthma, uncomplicated; Z90.49 Acquired absence of other specified parts of digestive tract; Z98.51 Tubal ligation status; Z98.890 Other specified postprocedural states; Z98.84 Bariatric surgery status; Z83.3 Family history of diabetes mellitus; Z82.49 Family history of ischemic heart disease and other diseases of the circulatory system; Z88.8 Allergy status to other drugs, medicaments and biological substances; Z88.1 Allergy status to other antibiotic agents; Z88.0 Allergy status to penicillin; Z88.5 Allergy status to narcotic agent; Z68.34 Body mass index [BMI] 34.0-34.9, adult; Z20.822 Contact with and (suspected) exposure to COVID-19
CPT/HCPCS: 36415; 80048; 85025; 85027; 85610; 87081; 87811; A4306; C1713; C1776; J0360; J0690; J1100; J1885; J1956; J2250; J2405; J2550; J2704; J2795; J3010; J3370; J3490; J9250; Q0162; Q0169; S0020

== ENCOUNTER 2022-11-10 19:30 | Outpatient (CLI) | payer OTHER | END 2022-11-10 19:31 | disposition home or self-care (01) | LOC: SLEEPLAB 19:30 | PROVIDERS: ATTEND Student in an Organized Health Care Education/Training Program | DX: G47.33 Obstructive sleep apnea (adult) (pediatric) (principal) | CPT/HCPCS: 95811 ==

== ENCOUNTER 2022-11-30 14:56 | Outpatient (CLI) | payer OTHER | END 2022-11-30 14:57 | disposition home or self-care (01) | LOC: BICMAMMO 14:56 | PROVIDERS: ATTEND Family Medicine | DX: Z13.820 Encounter for screening for osteoporosis (principal); Z78.0 Asymptomatic menopausal state; M85.80 Other specified disorders of bone density and structure, unspecified site | CPT/HCPCS: 77080 ==

== ENCOUNTER 2024-04-10 15:11 | Outpatient (CLI) | payer OTHER | END 2024-04-10 15:12 | disposition home or self-care (01) | LOC: SCSRAD 15:11 | DX: M19.011 Primary osteoarthritis, right shoulder (principal); M25.861 Other specified joint disorders, right knee; M25.761 Osteophyte, right knee; M19.041 Primary osteoarthritis, right hand; Z91.81 History of falling ==

== ENCOUNTER 2024-04-30 16:25 | Outpatient (CLI) | payer OTHER | END 2024-04-30 16:26 | disposition home or self-care (01) | LOC: SCSRAD 16:25 | DX: Z04.3 Encounter for examination and observation following other accident (principal); Z91.81 History of falling ==